=== PATIENT | female | born 1955 | race African-American/Black ===

== ENCOUNTER → 2018-01-12 | Outpatient (CLI) | payer BC, OTHER | END | disposition home or self-care (01) | LOC: MAMMO 12:20 | DX: Z12.31 Encounter for screening mammogram for malignant neoplasm of breast (principal) | CPT/HCPCS: 77063; 77067 ==

== ENCOUNTER 2018-11-16 14:06 | Emergency (ER) | payer BC, OTHER ==
[~2018-11-16] VITALS: Ht 154.9 cm; Wt 65.8 kg
[~2018-11-16 14:06] MED LIST: AMLO2.5T3 PO; ATOR40TA59 PO; HYDR12.58 PO; LISI-130 PO; MELO7.5T29 PO; OMEP40CA5 PO
[2018-11-16] MEDS ORDERED: IPRATRPIUM/ALBUTEROL 0.5/2.5MG 3 ML NEBU. NEB ONE (15:00)
[2018-11-16] MEDS ORDERED: DEXAMETHASONE SOD PHOS 20 MG/5 ML VIAL. PO ONE (15:00)
--- NOTE | 2018-11-16 15:34 | RAD ---
CHEST PA LATERAL History: cough x 19 days, headaches . Comparison: None. Heart size: Within normal limits. Luly/mediastinum: Within normal limits Lungs: No focal airspace consolidation. Pleura: No evidence of pleural effusion. Pneumothorax: None visualized Bones: Regional skeleton appears grossly intact. Miscellaneous: None Impression: No acute radiographic findings. Electronically signed by: Basilio Landa MD (11/16/2018 3:30 PM) [facility]
--- NOTE | 2018-11-16 15:53 | PHYS DOC ---
Past Medical History Past Medical History: Depression, Hypertension Past Surgical History: No Surgical History Smoking: Quit Greater Than 1 Year Alcohol Use: Occasionally Drug Use: None Adult General Chief Complaint Chief Complaint: FLU SYMPTOM HPI HPI Patient is a 63 year old female who presents to the emergency room with complaints of her nonproductive cough, and chest congestion since the beginning of this month. Patient states that she was prescribed erythromycin and prednisone at the end of September and she felt better for 2 or 3 days but then the cough returned. Patient denies any fever, nausea, vomiting, diarrhea, abdominal pain, back pain, or ear pain. She reports sinus pressure and intermittent shortness of breath and wheezing. SHe states that she has been taking Zyrtec and using her albuterol inhaler at home with little relief of her symptoms. Review of Systems Review of Systems Constitutional: Denies fever or chills [] HENT: Denies ear pain or sore throat; reports sinus pressure and nasal congestion [] Respiratory: See history of present illness Cardiovascular: Denies chest pain GI: Denies abdominal pain, nausea, vomiting, or diarrhea [] Musculoskeletal: Denies back pain Integument: Denies rash or skin lesions [] Neurologic: Denies headache, focal weakness or sensory changes [] Complete systems were reviewed and found to be within normal limits, except as documented in this note. Current Medications Current Medications Current Medications Medications (Trade) Dose Ordered Sig/Bryce Start Time Stop Time Status Last Admin Dose Admin Albuterol/ Ipratropium (Duoneb) 3 ml 1X ONCE 11/16/18 15:00 11/16/18 15:01 DC 11/16/18 15:16 3 ML Dexamethasone Sodium Phosphate (Decadron) 10 mg 1X ONCE 11/16/18 15:00 11/16/18 15:01 DC 11/16/18 15:24 10 MG Allergies Allergies Allergies Coded Allergies Type Severity Reaction Last Updated Verified Penicillins Allergy Intermediate 11/06/15 No Sulfa (Sulfonamide Antibiotics) Allergy Intermediate 11/06/15 No codeine Allergy Intermediate 11/06/15 Yes Physical Exam Physical Exam Constitutional: Well developed, well nourished, no acute distress, non-toxic appearance. [] HENT: Normocephalic, atraumatic, bilateral external ears normal, bilateral TMs normal, posterior pharynx normal, oropharynx moist, no oral exudates, nose normal. [] Eyes: conjunctiva normal, no discharge. [] Neck: Normal range of motion, no tenderness, supple, no stridor. [] Cardiovascular:Heart rate regular rhythm, no murmur [] Lungs & Thorax: Bilateral breath sounds diminished in posterior bases with expiratory wheezes throughout Skin: Warm, dry, no erythema, no rash. [] Extremities: No cyanosis, no clubbing, ROM intact, no edema. [] Neurologic: Alert and oriented X 3, normal motor function, normal sensory function, no focal deficits noted. [] Psychologic: Affect normal, judgement normal, mood normal. [] Current Patient Data Vital Signs Vital Signs Date Time Temp Pulse Resp B/P (MAP) Pulse Ox O2 Delivery O2 Flow Rate FiO2 11/16/18 16:23 70 16 171/81 (111) 96 Room Air 11/16/18 14:28 98.2 98.2 EKG EKG [] Radiology/Procedures Radiology/Procedures PROCEDURE: CHEST PA & LATERAL CHEST PA LATERAL History: cough x 19 days, headaches . Comparison: None. Heart size: Within normal limits. Luly/mediastinum: Within normal limits Lungs: No focal airspace consolidation. Pleura: No evidence of pleural effusion. Pneumothorax: None visualized Bones: Regional skeleton appears grossly intact. Miscellaneous: None Impression: No acute radiographic findings.[] Course & Med Decision Making Course & Med Decision Making Pertinent Labs and Imaging studies reviewed. (See chart for details) dx: Cough, URI, acute wheezy bronchitis. Patient was given a breathing treatment and 10 mg of Decadron by mouth in the emergency department. Following the breathing treatment and steroid her lungs were clear in all cadena patient reported feeling better.. Chest x-ray was negative for any pneumonia, or acute process. Prescription was written for Tessalon Perles, and prednisone. Patient instructed to avoid airway irritants, increase clear fluids, and use a cool mist to notify her. Follow-up with primary care doctor if symptoms persist, return to the ER symptoms worsen she was in agreement with this plan. [] Staff Physician Addendum: I was working in the ER during the course of this patient's visit. I was available for consultation as needed, but I was not directly involved in the care of this patient. Dragon Disclaimer Dragon Disclaimer This electronic medical record was generated, in whole or in part, using a voice recognition dictation system. Departure Departure Impression: Primary Impression: Cough in adult patient Additional Impressions: URI (upper respiratory infection) Acute wheezy bronchitis Disposition: 01 HOME, SELF-CARE Condition: IMPROVED Referrals: DENNIS SINGH MD (PCP) Patient Instructions: Acute Bronchitis, [id number] Additional Instructions: Fill prescription(s) and use as directed. Cool mist humidifier in room at bedtime. Tylenol or ibuprofen prn pain/fever. Increase clear fluids. Avoid triggers such as smoke, fragrance, dust, and pollen. Follow-up with your primary care doctor in 1-2 days, return to ER symptoms worsen Scripts Benzonatate (TESSALON PERLE) 100 Mg Capsule 1 CAP PO TID PRN for COUGH, #21 CAP 0 Refills Prov: ALISA WU [employer]PERATIONS PROJECT MANAGER 11/16/18 Prednisone (PREDNISONE) 50 Mg Tablet 1 TAB PO DAILY, #4 TAB 0 Refills begin taking on 11/17/18 Prov: ALISA WU APRN 11/16/18 Problem Qualifiers Additional Impressions: URI (upper respiratory infection) URI type: unspecified viral URI Qualified Codes: J06.9 - Acute upper respiratory infection, unspecified ALISA WU APRN Nov 16, 2018 15:53 CAYDEN BURK MD Nov 17, 2018 22:28
[2018-11-16] MEDS ORDERED: BENZ100C PO (16:14)
[2018-11-16] MEDS ORDERED: PRED50TA PO (16:14)
[2018-11-16 16:23] VITALS: BP 171/81
== END 2018-11-16 16:41 | disposition home or self-care (01) ==
LOC: ER 14:06
DX: J20.9 Acute bronchitis, unspecified (principal); J06.9 Acute upper respiratory infection, unspecified; I10 Essential (primary) hypertension; F32.9 Major depressive disorder, single episode, unspecified; Z87.891 Personal history of nicotine dependence; Z88.0 Allergy status to penicillin; Z88.2 Allergy status to sulfonamides; Z88.5 Allergy status to narcotic agent
CPT/HCPCS: 71046; 94640; 99283; J1100; J7620

== ENCOUNTER → 2019-02-24 | Outpatient (CLI) | payer BC, OTHER ==
[~2019-02-24] MED LIST changes: -AMLO2.5T3 PO; +AMLO2.5T5 PO; +BENZ100C PO; +PRED50TA PO
--- NOTE | 2019-02-24 13:50 | RAD ---
DATE: 02/24/2019 EXAM: MAMMO ADRIÁN SCREENING BILATERAL HISTORY: Routine screening COMPARISON: 01/12/2018 This study was interpreted with the benefit of Computerized Aided Detection (CAD). Breast Density: SCATTERED The breast parenchyma shows scattered fibroglandular densities. Breast parenchyma level B. FINDINGS: 2-D and 3-D tomosynthesis imaging was performed in CC and MLO projections. No new or enlarging breast densities are seen. Minimal benign type calcification is present. No suspicious microcalcifications have developed. IMPRESSION: Stable mammograms without evidence of malignancy. BI-RADS CATEGORY: 2 BENIGN FINDING(S) RECOMMENDED FOLLOW-UP: 12M 12 MONTH FOLLOW-UP PQRS compliance statement: Patient information was entered into a reminder system with a target due date for the next mammogram. Mammography is a sensitive method for finding small breast cancers, but it does not detect them all and is not a substitute for careful clinical examination. A negative mammogram does not negate a clinically suspicious finding and should not result in delay in biopsying a clinically suspicious abnormality. "Our facility is accredited by the [employer] Mammography Program."
== END | disposition home or self-care (01) ==
LOC: MAMMO 12:22
PROVIDERS: ATTEND Family Medicine
DX: Z12.31 Encounter for screening mammogram for malignant neoplasm of breast (principal); Z88.0 Allergy status to penicillin; Z88.2 Allergy status to sulfonamides; Z88.5 Allergy status to narcotic agent; Z87.891 Personal history of nicotine dependence
CPT/HCPCS: 77063; 77067